=== PATIENT | female | born 1995 | race Asian ===

== ENCOUNTER 2019-12-22 12:39 | Outpatient (CLI) | payer OTHER | END 2019-12-22 23:59 | disposition home or self-care (01) | LOC: RAD 12:39 | PROVIDERS: ATTEND Nurse Practitioner Acute Care | DX: Z02.89 Encounter for other administrative examinations (principal) | CPT/HCPCS: 71045-TC ==

== ENCOUNTER 2020-04-07 10:14 | Emergency (ER) | payer OTHER ==
[~2020-04-07] VITALS: Ht 160 cm; Wt 68.0 kg
[2020-04-07 10:21] VITALS: BP 127/88
--- NOTE | 2020-04-07 10:29 | NUR ---
Cindy rai in ED - 04/07/20 at 1030 by [employer]ATIONS ADVISOR AT [facility] FOR XRAY.
--- NOTE | 2020-04-07 10:40 | NUR ---
COVID SPECIMEN AND INFLUENZA OBTAINED AND SENT TO LAB.
--- NOTE | 2020-04-08 10:07 | NUR ---
COVID PCR POSITIVE
== END 2020-04-07 10:43 | disposition home or self-care (01) ==
LOC: ER 10:18
DX: U07.1 COVID-19 (principal); R51.9 Headache, unspecified
CPT/HCPCS: 87426; 87804; 99283; C9803; U0003